=== PATIENT | male | born 1980 | race Caucasian/White ===

== ENCOUNTER 2022-02-16 00:16 | Emergency (ER) | payer OTHER, SELFPAY ==
[2022-02-16 00:17] VITALS: BP 152/87; PULSE 86; RESP 18; TEMP 35.8; O2SAT 96; BMI 53.1
--- NOTE | 2022-02-16 00:31 | EX.ED.DYSGE1 ---
HPI History of Present Illness Chief Complaint: Nausea/Vomiting Detail of Chief Complaint: Nausea and back pain Informant: patient Narrative Narrative: Patient presents with 2 separate complaints. He is complaining of left lower back pain that radiates down his leg. He believes he may have tweaked his back when he was shoveling some gravel earlier this week. Pain became more significant tonight. This evening he also developed nausea with dry heaves. He is unsure if this is related to the back pain or not. No fever or chills. [facility] Medical History Diabetes Home Medications cyclobenzaprine 10 mg tablet 10 mg PO BID PRN muscle spasm #10 tabs 02/16/22 [Rx Last Taken Unknown] hydrocodone-acetaminophen 5-325mg 5mg-325mg 1 tab PO Q6H PRN pain 3 days #10 tabs 02/16/22 [Rx Last Taken Unknown] ondansetron 4 mg disintegrating tablet 4 mg PO Q8H PRN nausea and vomiting #10 tabs 02/16/22 [Rx Last Taken Unknown] Allergy/AdvReac Type Severity Reaction Status Date / Time No Known Allergies Allergy Verified 02/16/22 00:17 Surgical History S/P cholecystectomy Social History Smoking Status: Former smoker ROS ROS ED Constitutional Constitutional ED: Denies chills or fever(s) Eyes Eyes: Denies change in vision or discharge from eye(s) ENT ENT ED: Denies discharge from eye(s), rhinorrhea or sore throat Cardiovascular Cardiovascular: Denies chest pain or palpitations Respiratory/Chest Respiratory/Chest: Denies cough or dyspnea Gastrointestinal Gastrointestinal: Reports nausea and vomiting; Denies diarrhea Genitourinary Genitourinary ED: Denies dysuria Musculoskeletal Musculoskeletal: Reports back pain and extremity pain Integumentary Denies Abrasions or rash Neurologic Neurologic: Denies headache(s) or weakness Allergic/Immunologic Allergic/Immunologic ED: Denies lip swelling or urticaria EXAM Physical Exam Const Vital Signs: 02/16/22 00:17 Temperature 96.4 F L Temperature Source Temporal Pulse Rate 86 Respiratory Rate 18 Blood Pressure 152/87 H Blood Pressure Mean 108 Pulse Ox 96 Oxygen Delivery Method Room Air Positive well nourished and well developed General Appearance ED: well developed HEENT Reports normocephalic and head/scalp atraumatic Eyes PERRL and EOMs intact bilaterally Neck supple Chest Wall inspection of chest normal and palpation of chest normal Resp normal respiratory effort and clear to auscultation bilaterally Cardio regular rate and regular rhythm GI non-tender Auscultation: hypoactive bowel sounds Palpation: soft Back/Spine Back/Spine Narrative: Left lumbar paraspinal tenderness. No midline thoracic or lumbar tenderness. Extremity normal to inspection Neuro oriented x3 and no sensory deficits noted Sensorium / Orientation: alert Motor Exam: strength 5/5 throughout Psych mental status grossly normal Skin no rashes or lesions noted MDM MDM MDM Narrative Medical decision making narrative: Patient was given a liter IV fluid and Zofran for nausea control. He is given a dose of IV Toradol. Because the patient is diabetic labs are obtained. Lab Data Attestation: I reviewed the patient's lab results. Labs: Laboratory Results - last 24 hr 02/16/22 02/16/22 00:40 00:40 WBC 7.3 RBC 5.45 Hgb 16.2 Hct 45.2 MCV 82.9 MCH 29.7 MCHC 35.8 RDW Std Deviation 36.9 RDW Coeff of [place] 12.2 Plt Count 225 MPV 10.3 Immature Gran % (Auto) 0.400 Neut % (Auto) 61.1 Lymph % (Auto) 28.2 [place] % (Auto) 6.3 Eos % (Auto) 3.3 Baso % (Auto) 0.7 Absolute Neuts (auto) 4.5 Absolute Lymphs (auto) 2.06 Nucleated RBC % 0 Sodium 135 L Potassium 3.8 Chloride 100 Carbon Dioxide 26.0 Anion Gap 9 BUN 15 Creatinine 0.76 Estim Creat Clear Calc 133.41 Est GFR (MDRD) Af Amer 144 Est GFR (MDRD) Non-Af 119 BUN/Creatinine Ratio 19.6 Glucose 383 H Calcium 9.8 Treatment and Re-Evaluation Narrative: CBC unremarkable. Chemistry studies significant for glucose of 383. Normal anion gap and bicarb. On repeat evaluation nausea significantly improved. Because the patient's blood sugar is already significantly elevated I do not want to put him on steroids for his radiculopathy. He will be given a prescription for [place] and Flexeril. I will write him off work for the next 2 days. Discharge Plan Triage Chief Complaint: Nausea/Vomiting ED Provider: Jocelyn Hamm Dx/Rx/DC Orders Clinical Impression: Nausea, Acute left lumbar radiculopathy Instructions: ED Sciatica, ED Vomiting (Adult) Prescriptions: New hydrocodone-acetaminophen 5-325 mg tablet 1 tab PO Q6H PRN (Reason: pain) 3 Days Qty: 10 0RF cyclobenzaprine 10 mg tablet 10 mg PO BID PRN (Reason: muscle spasm) Qty: 10 0RF ondansetron 4 mg tablet,disintegrating 4 mg PO Q8H PRN (Reason: nausea and vomiting) Qty: 10 0RF Stand Alone Forms: ED Work / School Excuse Primary Care Provider: Care Physician,No Primary Referrals: Emiliano Kan MD [STAFF PHYSICIAN] - 1 Week Disposition Disposition: Home, Self Care
[2022-02-16] MEDS: Ketorolac 30 MG/ML Syringe IV (00:48)
[2022-02-16] MEDS: Ondansetron 4 MG/2 ML Vial IV (00:48)
[2022-02-16] MEDS: 0.9% Normal Saline 1,000 ML 1000 ML IV (00:48)
[2022-02-16 00:49] LABS: Absolute Lymphocyte Count 2.06 X10^3/uL (0.83-4.51); Absolute Neutrophil Count 4.5 X10^3/uL (2.0-7.7); Basophil# 0.05 X10^3/uL; Basophil% 0.7 % (0-1); Eosinophil# 0.24 X10^3/uL; Eosinophils% 3.3 % (0-5); Hematocrit 45.2 % (40-54); Hemoglobin 16.2 g/dL (13.0-16.5); Lymphocyte # 2.06 X10^3/ul (0.83-4.51); Lymphocyte % 28.2 % (19-41); Mean Corp Hgb Conc 35.8 g/dL (32-36); Mean Corpuscular Hgb 29.7 pg (27.0-32.0); Mean Corpuscular Volume 82.9 fL (80-94); Mean Platelet Vol. 10.3 fl (6.2-12.0); Monocyte# 0.46 X10^3/uL; Monocyte% 6.3 % (0-10); NRBC Flagged by Analyzer 0 % (0-5); Neutrophil # 4.46 X10^3/uL (2.7-7.7); Neutrophil % 61.1 % (47-70); Platelet Count 225 K/mm3 (150-450); RBC Distribution Width CV 12.2 % (11.6-14.6); RBC Distribution Width SD 36.9 fl (35.1-43.9); Red Blood Count 5.45 M/mm3 (4.6-6.2); White Blood Count 7.3 K/mm3 (4.4-11.0)
[2022-02-16 01:11] LABS: Anion Gap 9 (5-15); BUN 15 mg/dL (7-18); BUN/Creat Ratio 19.6 RATIO (10-20); Calcium,Total 9.8 mg/dL (8.5-10.1); Chloride 100 mmol/L (98-107); Creatinine, Serum 0.76 mg/dL (0.70-1.30); EST Glomerular Filtration Rate 119 mL/min (>60); Est Glom Filt Rate - Afr Amer 144 mL/min (>60); Estimated Creatinine Clearance 133.41 ml/min; Glucose 383 mg/dL (74-106); Potassium 3.8 mmol/L (3.5-5.1); Sodium Level 135 mmol/L (136-145)
[2022-02-16 01:43] VITALS: BP 126/88; PULSE 102; RESP 18; O2SAT 93
--- NOTE | 2022-02-16 12:06 | ED.RN ---
PT CALLED AND CARI ONLY GOT [address] OR [address] DERAS LOOKED AT THE ORDERS FROM LAST NIGHT AND SENT ANOTHER RX IN FOR THE [place]. PT IS AWARE
== END 2022-02-16 01:49 | disposition home or self-care (01) ==
PROVIDERS: Emergency Provider Emergency Medicine; Visit Provider Emergency Medicine
DX: R11.2 Nausea with vomiting, unspecified (principal); M54.16 Radiculopathy, lumbar region; Z87.891 Personal history of nicotine dependence
CPT/HCPCS: 80048; 85025; 96374; 96375; 99283; J7030; A4216; J2405